=== PATIENT | female | born 1965 ===

== ENCOUNTER 2021-07-22 05:27 | Day surgery (SDC) | payer OTHER ==
[~2021-07-22 05:27] MED LIST: CLONAZEPAM0.5 MG PO; CYMBALTA30 MG PO; [UNRECOGNIZED DRUG - OTHER] PO
== END 2021-07-22 13:30 | disposition home or self-care (01) ==
LOC: CIR.AMB 05:27
PROVIDERS: ATTEND Colon & Rectal Surgery
DX: K62.82 Dysplasia of anus (principal); Z86.010 Personal history of colon polyps; K64.1 Second degree hemorrhoids; I10 Essential (primary) hypertension

== ENCOUNTER 2024-10-30 05:53 | Day surgery (SDC) | payer OTHER ==
[2024-10-27 09:40] LABS: PH,URINE 6.5 (5.0-8.0); URINE APPEARANCE Clear; URINE BILIRRUBIN Negative (NEGATIVE); URINE BLOOD Negative; URINE COLOR Yellow; URINE GLUCOSE Negative (NEGATIVE); URINE KETONE Negative (NEGATIVE); URINE LEUKOCYTE Negative; URINE NITRATE Negative; URINE PROTEIN Negative (NEGATIVE); URINE UROBILINOGEN 0.2 E.U./dl
[2024-10-27 09:42] LABS: URINE RBC 14.1 uL (0.0-20.8); URINE WBC 2.8 uL (0.0-23.2)
[2024-10-27 09:44] LABS: URINE CAST 0.14 uL (0.0-1.40)
[2024-10-27 09:47] LABS: BASO % 0.5 % (0.1-1.2); EOS # 0.21 (0.04-0.54); EOS % 2.3 % (0.7-7.0); HEMATOCRIT 41.6 % (34.1-44.9); HEMOGLOBIN 13.7 g/dL (11.2-15.7); LYMPH # 2.64 (1.18-3.74); LYMPH % 28.4 % (19.3-53.1); MEAN CORPUSCULAR HEMOGLOBIN 30.2 pg (25.6-32.2); MONO # 0.53 (0.24-0.82); MONO % 5.7 % (4.7-12.5); NEUT # 5.82 (1.56-6.13); NEUT % 62.7 % (34.0-71.1); PLATELET COUNT 228 K/uL (163-369); RED BLOOD COUNT 4.53 M/uL (3.93-5.22); RED CELL DISTRIBUTION WIDTH 13.2 % (11.6-14.4)
[2024-10-27 10:09] LABS: INR 0.94; PARTIAL THROMBOPLASTIN TIME 22.1 SECONDS (22.0-34.0); PROTHROMBIN TIME 10.3 SECONDS (9.0-11.5)
[2024-10-27 10:33] VITALS: BP 142/88
[2024-10-27 10:38] LABS: ALBUMIN 3.5 gm/dL (3.4-5.0); BILIRUBIN TOTAL 0.53 mg/dL (0.3-1.2); CREATININE SERUM 0.61 mg/dL (0.55-1.02); GFR 99.71; GLOBULINA 3.7 G/DL (2.4-3.5); POTASSIUM 4.57 mEq/L (3.5-5.1); TOTAL PROTEIN 7.2 gm/dL (6.4-8.2)
[~2024-10-30] VITALS: Ht 170.2 cm; Wt 95.3 kg
[~2024-10-30 05:53] MED LIST changes: +CATAFLAN; +QDOLO5 MG/1 ML; +ZANAFLEX2 M1 PO; +ZESTRIL2.5 MG PO
[2024-10-30] MEDS ORDERED: CEFAZOLIN SODIUM 1,000 MG VIAL ONE ×2 (12:28→17:44)
[2024-10-30] MEDS ORDERED: METHYLPREDNISOLONE ACETATE 80 MG/ML VIAL ONE (14:34)
[2024-10-30] MEDS ORDERED: LIDOCAINE HCL 1%/EPINEPHRINE 20ML VIAL IJ ONE (14:36)
[2024-10-30] MEDS ORDERED: BUPIVACAINE HCL/MPF 0.5% 30ML VIAL ONE (14:36)
[2024-10-30] MEDS ORDERED: EPINEPHRINE HCL/PF 1 MG/ML AMPUL ONE (14:36)
[2024-10-30] MEDS ORDERED: MEPERIDINE HCL/PF 25 MG/ML VIAL IM PRN (16:00)
[2024-10-30] MEDS ORDERED: TRAM1TAB98 PO (16:00)
[2024-10-30] MEDS ORDERED: PROMETHAZINE HCL 25 MG/ML AMPUL IM PRN (16:00)
[2024-10-30] MEDS ORDERED: CEFAZOLIN SODIUM 1,000 MG VIAL IV ONE (16:00)
[2024-10-30] MEDS ORDERED: DUI500 PO (16:04)
[2024-10-30] MEDS ORDERED: CEFADROXIL 500 MG CAPSULE PO SCH (21:00)
== END 2024-10-30 19:30 | disposition home or self-care (01) ==
LOC: CIR.AMB 05:53
PROVIDERS: Colon & Rectal Surgery; ATTEND Orthopaedic Surgery Sports Medicine
DX: M23.321 Other meniscus derangements, posterior horn of medial meniscus, right knee (principal); M65.861 Other synovitis and tenosynovitis, right lower leg; M17.11 Unilateral primary osteoarthritis, right knee; M67.51 Plica syndrome, right knee